=== PATIENT | male | born 1955 | race Caucasian/White ===

== ENCOUNTER → 2019-01-29 11:27 | Outpatient (CLI) | payer MEDICARE, BC ==
[~2019-01-29 11:27] MED LIST: FLUTICASONE PRO16 GM NS
== END | disposition home or self-care (01) ==
LOC: D.HCCECHO 11:27 → D.HCCARDIO 11:30
PROVIDERS: ATTEND Internal Medicine Cardiovascular Disease
DX: I34.0 Nonrheumatic mitral (valve) insufficiency (principal)

== ENCOUNTER → 2020-01-28 10:35 | Outpatient (CLI) | payer MEDICARE, BC | END | disposition home or self-care (01) | LOC: D.HCCECHO 10:35 | PROVIDERS: ATTEND Internal Medicine Cardiovascular Disease | DX: I34.9 Nonrheumatic mitral valve disorder, unspecified (principal) ==